=== PATIENT | female | born 1980 | race Caucasian/White ===

== ENCOUNTER 2016-07-08 12:10 | Emergency (ER) | payer OTHER ==
[~2016-07-08] VITALS: Wt 126.0 kg
[2016-07-08] MEDS ORDERED: KETOROLAC 30 MG INJ IV STA (14:10)
--- NOTE | 2016-07-08 14:53 | ERD ---
ER Documentation Chief Complaint Date/Time DATE: 07/08/16 TIME: 14:50 Chief Complaint rlq pain w diarrhea HPI This a 36-year-old female who presents to the emergency department today complaining of right-sided abdominal pain that started yesterday. Patient also reports loose stool for the past 2 days. Patient has a history of cholecystectomy in 2013 and a gastric bypass in 2008. Patient states she thinks she had a fever last night. Denies any vomiting per ROS All systems reviewed and are negative except as per history of present illness. Medications Home Meds Active Scripts Loperamide Hcl* (Imodium*) 2 Mg Capsule, 2 MG PO .AFTER EA LOOSE BM Y for DIARRHEA, #8 TAB Prov:ANA WHARTON PA-C 07/08/16 Naproxen* (Naprosyn*) 500 Mg Tablet, 500 MG PO BID Y for PAIN AND/OR INFLAMMATION, #30 TAB Prov:ANA WHARTON PA-C 07/08/16 Cephalexin* (Keflex*) 500 Mg Capsule, 500 MG PO QID for 7 Days, CAP Prov:ANA WHARTONC 07/08/16 Allergies Allergies: Coded Allergies: No Known Allergy (Unverified , 07/08/16) PMhx/Soc Medical and Surgical Hx: pt denies Medical Hx, pt denies Surgical Hx Hx Alcohol Use: No Hx Substance Use: No Hx Tobacco Use: No Smoking Status: Never smoker Physical Exam Vitals Vital Signs Date Time Temp Pulse Resp B/P Pulse Ox O2 Delivery O2 Flow Rate FiO2 07/08/16 12:21 98.7 71 20 121/58 99 Physical Exam Const: Morbidly obese, no acute distress Head: Atraumatic Eyes: Normal Conjunctiva ENT: Normal External Ears, Nose and Mouth. Neck: Full range of motion..~ No meningismus. Resp: Clear to auscultation bilaterally Cardio: Regular rate and rhythm, no murmurs Abd: Soft, right-sided abdominal pain and right upper quadrant tenderness non distended. Normal bowel sounds no specific tenderness at McBurney's. No left lower quadrant tenderness. Skin: No petechiae or rashes Back: No midline or flank tenderness Ext: No cyanosis, or edema Neur: Awake and alert Psych: Normal Mood and Affect Result Diagram: 07/08/16 1430 07/08/16 1430 Results 24 hrs Laboratory Tests Test 07/08/16 14:29 07/08/16 14:30 Urine Bacteria MANY Urine Bilirubin NEGATIVE Urine Clarity CLOUDY Urine Color YELLOW Urine Glucose NEGATIVE% Urine Hemoglobin NEGATIVE Urine Ketones TRACE Urine Leukocyte Esterase NEGATIVE Urine Microscopic RBC NONE SEEN/HPF Urine Microscopic WBC NONE SEEN/HPF Urine Nitrite POSITIVE Urine Specific Disputanta >=1.030 Urine Squamous Epithelial Cells MANY Urine Total Protein NEGATIVE Urine Urobilinogen 0.2 E.U./dL Urine pH 5.5 Alanine Aminotransferase (ALT/SGPT) 42IU/L Albumin 3.9g/dl Albumin/Globulin Ratio 1.50 Alkaline Phosphatase 82IU/L Anion Gap 15 Aspartate Amino Transf (AST/SGOT) 40IU/L Basophils # 0.110^3/ul Basophils % 0.6% Blood Morphology Comment Blood Urea Nitrogen 11mg/dl Calcium Level 9.1mg/dl Carbon Dioxide Level 25mmol/L Chloride Level 107mmol/L Creatinine 0.64mg/dl Direct Bilirubin 0.00mg/dl Eosinophils # 0.110^3/ul Eosinophils % 1.3% Globulin 2.60g/dl Glucose Level 82mg/dl Hematocrit 35.2% Hemoglobin 11.5g/dl Indirect Bilirubin 0.2mg/dl Lipase 104U/L Lymphocytes # 3.410^3/ul Lymphocytes % 31.5% Mean Corpuscular Hemoglobin 25.7pg Mean Corpuscular Hemoglobin Concent 32.6g/dl Mean Corpuscular Volume 78.7fl Mean Platelet Volume 9.0fl Monocytes # 0.610^3/ul Monocytes % 5.8% Neutrophils # 6.510^3/ul Neutrophils % 60.8% Nucleated Red Blood Cells # 0.010^3/ul Nucleated Red Blood Cells % 0.0/100WBC Platelet Count 71620^3/UL Potassium Level 3.8mmol/L Red Blood Count 4.4710^6/ul Red Cell Distribution Width 17.0% Sodium Level 143mmol/L Total Bilirubin 0.2mg/dl Total Protein 6.5g/dl White Blood Count 10.610^3/ul Current Medications Medications (Trade) Dose Ordered Sig/Jenaro Route PRN Reason Start Time Stop Time Status Last Admin Dose Admin Ketorolac Tromethamine (Toradol) 30 mg ONCE STAT IV 07/08/16 14:10 07/08/16 14:12 DC 07/08/16 14:30 MR #: [id number] [facility] #: [id number] DOS: 07/08/16 1410 Ordering MD: ANA WHARTON PA-C Location: [facility] Room/Bed: PROCEDURE: CT Abdomen and Pelvis without contrast. CLINICAL INDICATION: Right upper quadrant abdominal pain. TECHNIQUE: CT scan of the abdomen and pelvis without contrast was performed on a multidetector high-resolution CT scanner. The patient was scanned without intravenous contrast. Coronal and sagittal reformatted images were obtained from the axial source images. Images were reviewed on a high-resolution PACS workstation. One or more of the following dose reduction techniques were used: Automated exposure control, adjustment of the mA and/or kV according to patient size, use of iterative reconstruction technique. The total exam CTDI equals 23.14 mGy and the total exam DLP equals 1586.28 mGy-cm. COMPARISON: None. FINDINGS: CT abdomen: The lung bases are clear. The heart size is normal, without pericardial thickening or effusion. The liver is normal in size and density without focal mass or intrahepatic biliary dilatation. The spleen is normal in size and homogeneous in density. Salas-en-Y gastric bypass changes are noted. There is a small hiatal hernia. The pancreas as visualized is normal. The gallbladder is surgically absent. The biliary tree is unremarkable and there is no evidence for biliary dilatation. The adrenal glands are symmetric and normal. The kidneys are symmetrically unremarkable as well. No renal calculus or obstructive uropathy or mass lesion is seen. The aorta is of normal caliber. There is no retroperitoneal lymphadenopathy. The ines hepatis region is clear. The small bowel and mesentery, as visualized , are unremarkable. CT pelvis: The small bowel loops situated within the pelvis are unremarkable. The pelvic organs are normal. The pelvic sidewalls and inguinal regions are clear. The sigmoid colon and rectum are unremarkable. The appendix is normal. No mass, lymphadenopathy, or free fluid is seen. No acute inflammation is seen. The surrounding osseous structures are unremarkable. No osteolytic or osteoblastic lesion is detected. IMPRESSION: No abdominal or pelvic acute inflammatory process, mass, or lymphadenopathy. Gastric bypass postsurgical changes with small hiatal hernia. RPTAT: JJ .Juma Smith MD, Date Time Electronically viewed and signed by .Juma Smith MD, MD on 07/08/2016 16:02 .A/ CC: ANA WHARTON PA-C Procedures/MDM This is a 36-year-old female who presents to the emergency department today complaining of abdominal pain for the past 2 days. Patient also reported some diarrhea. Patient body habitus makes it difficult to examine her however her pain appeared to be more in the right upper quadrant however patient has a history of cholecystectomy. I did obtain laboratory work and a CT scan after discussing the patient with Dr. Hartman especially given patient's history of cholecystectomy and gastric bypass. Laboratory work shows no elevated white blood cell count. She is mildly anemic. Platelets are within normal limits. Electrolytes are within normal limits. Glucose within normal limits. Lipase is within normal limits. Liver function is within normal limits per UA is positive for nitrites and negative leukocyte esterase. I will treat the patient for urinary tract infection. Urine test is negative CT abdomen pelvis noncontrastshows no abdominal or pelvic acute inflammatory process, mass or lymphadenopathy. There are gastric bypass postsurgical changes with a small hiatal hernia. There is no free fluid. The appendix is normal. The intestines are unremarkable. The gallbladder is surgically absent. Biliary tree is unremarkable no evidence for biliary dilatation. There is no renal calculus or obstructive uropathy or mass lesion seen. Patient symptoms at this time most consistent with abdominal pain of uncertain etiology however it may be related to her urinary tract infection and diarrhea. There is no evidence to suggest acute surgical abdomen at this time. Patient is afebrile and otherwise well-appearing peer Patient was given Toradol here in the emergency department and pain improved.. Patient will be given a prescription for Imodium, Keflex for her urinary tract infection and Naprosyn for pain. At this time the patient is stable for discharge and outpatient management. Patient should follow up with their PCP in the next 1-2 days. They may return to the emergency department sooner for any persistent or worsening of symptoms. Patient understood and agreed with the plan. Departure Diagnosis: Primary Impression: Abdominal pain Abdominal location: generalized Qualified Code: R10.84 - Generalized abdominal pain Additional Impression: UTI (urinary tract infection) Urinary tract infection type: site unspecified Hematuria presence: without hematuria Qualified Code: N39.0 - Urinary tract infection without hematuria, site unspecified Condition: ANA Mendez PA-C Jul 08, 2016 14:53
[2016-07-08 15:15] LABS: BASOPHIL # 0.1 10^3/ul (0.0-0.1); BASOPHILS % 0.6 % (0.0-2.0); EOSINOPHILS # 0.1 10^3/ul (0.0-0.5); EOSINOPHILS % 1.3 % (0.0-7.0); HEMATOCRIT 35.2 % (37.0-47.0); HEMOGLOBIN 11.5 g/dl (12.0-16.0); LYMPHOCYTES # 3.4 10^3/ul (0.8-2.9); LYMPHOCYTES % 31.5 % (15.0-51.0); MEAN CORPUSCULAR HEMOGLOBIN 25.7 pg (29.0-33.0); MEAN CORPUSCULAR HGB CONC 32.6 g/dl (32.0-37.0); MEAN CORPUSCULAR VOLUME 78.7 fl (82.0-101.0); MONOCYTE # 0.6 10^3/ul (0.3-0.9); MONOCYTES % 5.8 % (0.0-11.0); NEUTROPHIL # 6.5 10^3/ul (1.6-7.5); NEUTROPHILS % 60.8 % (39.0-77.0); PLATELET COUNT 265 10^3/UL (140-440); RED BLOOD COUNT 4.47 10^6/ul (4.20-5.40); UNCORRECTED WBC 10.6 10^3/ul (4.8-10.8); WHITE BLOOD COUNT 10.6 10^3/ul (4.8-10.8)
[2016-07-08 15:18] LABS: CONDITION 1; LH ANALYZER COMMENTS 1
[2016-07-08 15:21] LABS: ALBUMIN 3.9 g/dl (3.3-4.9)
[2016-07-08 15:22] LABS: POTASSIUM 3.8 mmol/L (3.5-5.1)
[2016-07-08 15:24] LABS: ALBUMIN/GLOBULIN RATIO 1.5; BILIRUBIN,INDIRECT 0.2 mg/dl (0-1.1); BILIRUBIN,TOTAL 0.2 mg/dl (0.2-1.3); CREATININE 0.64 mg/dl (0.44-1.00); TOTAL PROTEIN 6.5 g/dl (6.1-8.1)
[2016-07-08 15:25] LABS: CALCIUM 9.1 mg/dl (8.4-10.2)
[2016-07-08 15:30] LABS: ADD UMIC YES; URINE BILIRUBIN (Dip) NEGATIVE (NEGATIVE); URINE BLOOD (Dip) NEGATIVE (NEGATIVE); URINE COLOR YELLOW (YELLOW); URINE GLUCOSE (Dip) NEGATIVE (NEGATIVE); URINE KETONES (Dip) TRACE (NEGATIVE); URINE LEUKOCYTE ESTERASE (Dip) NEGATIVE (NEGATIVE); URINE NITRITE (Dip) POSITIVE (NEGATIVE); URINE TOTAL PROTEIN (Dip) NEGATIVE (NEGATIVE); URINE UROBILINOGEN (Dip) 0.2 E.U./dL (0.1-1.0)
[2016-07-08 15:57] LABS: BACTERIA,URINE MANY; SQUAMOUS EPITHELIAL CELL,UR MANY; URINE RBCS NONE SEEN /HPF (0)
--- NOTE | 2016-07-08 16:02 | RADRPT ---
PROCEDURE: CT Abdomen and Pelvis without contrast. CLINICAL INDICATION: Right upper quadrant abdominal pain. TECHNIQUE: CT scan of the abdomen and pelvis without contrast was performed on a multidetector hig h-resolution CT scanner. The patient was scanned without intravenous contrast. Coronal and sagittal reformatted images were obtained from the axial source images. Images were reviewed on a high-resol [employer] PACS workstation. One or more of the following dose reduction techniques were used: Automated exposure control, adjustment of the mA and/or kV according to patient size, use of iterative recon struction technique. The total exam CTDI equals 23.14 mGy and the total exam DLP equals 1586.28 mGy -cm. COMPARISON: None. FINDINGS: CT abdomen: The lung bases are clear. The heart size is normal, without pericardial thickening or effusion. The liver is normal in size and density without focal mass or intrahepatic biliary dilatation. The spleen is normal in size and homogeneous in density. Salas-en-Y gastric bypass changes are noted. T here is a small hiatal hernia. The pancreas as visualized is normal. The gallbladder is surgically absent. The biliary tree is unremarkable and there is no evidence for biliary dilatation. The adr enal glands are symmetric and normal. The kidneys are symmetrically unremarkable as well. No renal calculus or obstructive uropathy or mass lesion is seen. The aorta is of normal caliber. There is no retroperitoneal lymphadenopathy. The ines hepatis reg ion is clear. The small bowel and mesentery, as visualized, are unremarkable. CT pelvis: The small bowel loops situated within the pelvis are unremarkable. The pelvic organs are normal. T he pelvic sidewalls and inguinal regions are clear. The sigmoid colon and rectum are unremarkable. The appendix is normal. No mass, lymphadenopathy, or free fluid is seen. No acute inflammation is s een. The surrounding osseous structures are unremarkable. No osteolytic or osteoblastic lesion is detec mason. IMPRESSION: No abdominal or pelvic acute inflammatory process, mass, or lymphadenopathy. Gastric bypass postsur gical changes with small hiatal hernia. RPTAT: JJ .Juma Smith MD, Date Time Electronically viewed and signed by .Juma Smith MD, on 07/08/2016 16:02 .Adry
[2016-07-08] MEDS ORDERED: NAPR-260 PO (16:37)
[2016-07-08] MEDS ORDERED: CEPH-443 PO (16:37)
[2016-07-08] MEDS ORDERED: LOPE2CAP PO (16:37)
== END 2016-07-08 16:44 | disposition home or self-care (01) ==
LOC: FTE 12:10
DX: R10.84 Generalized abdominal pain (principal); N39.0 Urinary tract infection, site not specified
CPT/HCPCS: 36415; 74176; 80053; 81001; 83690; 85025; 96374; J1885; Z7502; 81003

== ENCOUNTER 2016-11-06 21:59 | Emergency (ER) | payer OTHER ==
[~2016-11-06] VITALS: Ht 175.3 cm; Wt 125.5 kg
[~2016-11-06 21:59] MED LIST: CEPH-443 PO; LOPE2CAP PO; NAPR-260 PO
[2016-11-06 22:01] VITALS: Ht 175.3 cm; Wt 125.5 kg
[2016-11-07] MEDS ORDERED: FAMOTIDINE 20 MG TAB PO ONE (01:30)
[2016-11-07] MEDS ORDERED: LIDOCAINE/MYLANTA 40 ML BTL PO ONE (01:30)
[2016-11-07 02:02] LABS: ADD SCAN DIFF NO
[2016-11-07 02:07] LABS: BASOPHIL # 0.1 10^3/ul (0.0-0.1); BASOPHILS % 0.5 % (0.0-2.0); EOSINOPHILS # 0.1 10^3/ul (0.0-0.5); EOSINOPHILS % 1.3 % (0.0-7.0); HEMATOCRIT 37.8 % (37.0-47.0); HEMOGLOBIN 11.5 g/dl (12.0-16.0); LYMPHOCYTES # 3.6 10^3/ul (0.8-2.9); LYMPHOCYTES % 32.8 % (15.0-51.0); MEAN CORPUSCULAR HEMOGLOBIN 23.9 pg (29.0-33.0); MEAN CORPUSCULAR HGB CONC 30.4 g/dl (32.0-37.0); MEAN CORPUSCULAR VOLUME 78.6 fl (82.0-101.0); MEAN PLATELET VOLUME 9.9 fl (7.4-10.4); MONOCYTE # 0.7 10^3/ul (0.3-0.9); MONOCYTES % 6.6 % (0.0-11.0); NEUTROPHIL # 6.3 10^3/ul (1.6-7.5); NEUTROPHILS % 58.3 % (39.0-77.0); PLATELET COUNT 336 10^3/UL (140-415); RED BLOOD COUNT 4.81 10^6/ul (4.20-5.40); RED CELL DISTRIBUTION WIDTH 16.4 % (11.5-14.5); WHITE BLOOD COUNT 10.9 10^3/ul (4.8-10.8)
[2016-11-07 02:49] LABS: ALBUMIN 4.9 g/dl (3.3-4.9); ALBUMIN/GLOBULIN RATIO 1.81; BILIRUBIN,INDIRECT 0.1 mg/dl (0-1.1); BILIRUBIN,TOTAL 0.1 mg/dl (0.2-1.3); CALCIUM 9.4 mg/dl (8.4-10.2); CREATININE 0.78 mg/dl (0.44-1.00); POTASSIUM 4.1 mmol/L (3.5-5.1); TOTAL PROTEIN 7.6 g/dl (6.1-8.1)
[2016-11-07] MEDS ORDERED: DOCU-144 PO (04:53)
[2016-11-07] MEDS ORDERED: FAMO-18 PO (04:54)
--- NOTE | 2016-11-07 05:01 | ERD ---
ER Documentation Chief Complaint Date/Time DATE: 11/07/16 TIME: 04:57 Chief Complaint RECTAL BLEEDING SINCE LAST NIGHT AFTER BM, EPIGASTRIC PAIN HPI This is a 36-year-old female presents to the ER complaining of bright red blood per rectum after bowel movement last night and this morning. Patient denies any constipation. She denies any nausea vomiting or diarrhea. Patient denies any rectal pain. She denies any fevers or chills. Patient does complain of epigastric pain that is burning in quality it is nonradiating. She denies any chest pain or shortness of breath. ROS 12 point review of systems was done, all negative except per HPI. Medications Home Meds Active Scripts Famotidine* (Pepcid*) 20 Mg Tablet, 20 MG PO BID for 4 Days, TAB Prov:DIETER,JOCELIN C 11/07/16 Docusate Sodium* (Colace*) 100 Mg Capsule, 100 MG PO TID, #30 CAP Prov:DIETERJOCELIN C 11/07/16 Loperamide Hcl* (Imodium*) 2 Mg Capsule, 2 MG PO .AFTER EA LOOSE BM Y for DIARRHEA, #8 TAB Prov:ANA WHARTON-C 07/08/16 Naproxen* (Naprosyn*) 500 Mg Tablet, 500 MG PO BID Y for PAIN AND/OR INFLAMMATION, #30 TAB Prov:ANA WHARTON-C 07/08/16 Cephalexin* (Keflex*) 500 Mg Capsule, 500 MG PO QID for 7 Days, CAP Prov:ANA WHARTON PA-C 07/08/16 Allergies Allergies: Coded Allergies: No Known Allergy (Unverified , 07/08/16) PMhx/Soc Medical and Surgical Hx: pt denies Medical Hx History of Surgery: Yes (GASTRIC BYBASS IN 2008.) Anesthesia Reaction: No Hx Neurological Disorder: No Hx Respiratory Disorders: No Hx Cardiac Disorders: No Hx Psychiatric Problems: No Hx Miscellaneous Medical Probl: No Hx Alcohol Use: No Hx Substance Use: No Hx Tobacco Use: No Smoking Status: Never smoker Physical Exam Vitals Vital Signs Date Time Temp Pulse Resp B/P Pulse Ox O2 Delivery O2 Flow Rate FiO2 11/06/16 22:01 97.6 88 18 126/69 98 Physical Exam GENERAL: The patient is well developed and appropriate for usual state of health , in no apparent distress. HEENT: Atraumatic. CHEST: Clear to auscultation bilaterally. There are no rales, wheezes or rhonchi. HEART: Regular rate and rhythm. No murmurs, clicks, rubs or gallops. ABDOMEN: Soft, nontender and nondistended. Good bowel sounds. No rebound or guarding. No gross peritonitis. No gross organomegaly or masses. No Nelson sign or McBurney point tenderness. RECTAL: no hemorrhoids seen, non tender NEURO: Alert and oriented. Result Diagram: 11/07/16 0137 11/07/16 013 Results 24 hrs Laboratory Tests Test 11/07/16 01:37 11/07/16 02:41 White Blood Count 10.910^3/ul Red Blood Count 4.8110^6/ul Hemoglobin 11.5g/dl Hematocrit 37.8% Mean Corpuscular Volume 78.6fl Mean Corpuscular Hemoglobin 23.9pg Mean Corpuscular Hemoglobin Concent 30.4g/dl Red Cell Distribution Width 16.4% Platelet Count 79256^3/UL Mean Platelet Volume 9.9fl Neutrophils % 58.3% Lymphocytes % 32.8% Monocytes % 6.6% Eosinophils % 1.3% Basophils % 0.5% Nucleated Red Blood Cells % 0.0/100WBC Neutrophils # 6.310^3/ul Lymphocytes # 3.610^3/ul Monocytes # 0.710^3/ul Eosinophils # 0.110^3/ul Basophils # 0.110^3/ul Nucleated Red Blood Cells # 0.010^3/ul Sodium Level 141mmol/L Potassium Level 4.1mmol/L Chloride Level 107mmol/L Carbon Dioxide Level 24mmol/L Anion Gap 14 Blood Urea Nitrogen 17mg/dl Creatinine 0.78mg/dl Glucose Level 87mg/dl Calcium Level 9.4mg/dl Total Bilirubin 0.1mg/dl Direct Bilirubin 0.00mg/dl Indirect Bilirubin 0.1mg/dl Aspartate Amino Transf (AST/SGOT) 45IU/L Alanine Aminotransferase (ALT/SGPT) 44IU/L Alkaline Phosphatase 87IU/L Total Protein 7.6g/dl Albumin 4.9g/dl Globulin 2.70g/dl Albumin/Globulin Ratio 1.81 Lipase 134U/L Stool Occult Blood NEGATIVE Current Medications Medications (Trade) Dose Ordered Sig/Jenaro Route PRN Reason Start Time Stop Time Status Last Admin Dose Admin Famotidine (Pepcid) 20 mg ONCE ONCE PO 11/07/16 01:30 11/07/16 01:31 DC 11/07/16 01:41 Miscellaneous Medication (Gi Cocktail (2)) 40 ml ONCE ONCE PO 11/07/16 01:30 11/07/16 01:31 DC 11/07/16 01:41 Procedures/MDM This is a 36-year-old female presents to the ER with rectal bleeding. At this time there is no evidence of severe anemia and occult blood is negative. Patient may have internal hemorrhoids. Patient urgently needs to follow-up with her primary care doctor and see a GI doctor to get a colonoscopy done. Epigastric pain is likely GERD. Suspicion for cholecystitis, choledocholithiasis, peptic ulcer disease, current pancreatitis is low. There is no evidence of increased her enzymes or lipase. Patient felt significantly better with medications given the ER. She will be sent home with docusate and with famotidine. Patient is to follow-up with her primary care doctor within 1- 2 days return to ER sooner if symptoms worsen. My medical decision making was shared with the patient She understands and agrees with plan Departure Diagnosis: Primary Impression: Rectal bleeding Condition: Stable Patient Instructions: Rectal Bleed, Stable Additional Instructions: Call your primary care doctor TOMORROW for an appointment during the next 1-2 days.See the doctor sooner or return here if your condition worsens before your appointment time. JOCELIN GARCIAS Nov 07, 2016 05:01
[2016-11-07 05:05] VITALS: BP 107/50; PULSE 79; RESP 20
== END 2016-11-07 05:07 | disposition home or self-care (01) ==
LOC: FTE 21:59
DX: K62.5 Hemorrhage of anus and rectum (principal)
CPT/HCPCS: 80053; 82270; 83690; 85025; Z7610; 99283